=== PATIENT | male | born 1950 | race Caucasian/White ===

== ENCOUNTER 2025-02-02 09:47 | Emergency (ER) | payer OTHER ==
[2025-02-02 11:33] LABS: Specific Gravity 1.016 (1.005-1.030); Urine Bilirubin NEGATIVE (Negative); Urine Blood Negative (Negative); Urine Clarity Clear (Clear); Urine Color Light-Yellow (Yellow); Urine Glucose NEGATIVE (Negative); Urine Ketones NEGATIVE (Negative); Urine Microscopic Reflex YN NO UMIC; Urine Nitrite NEGATIVE (Negative); Urine Protein NEGATIVE (Negative); Urine Urobilinogen Normal (Normal)
--- NOTE | 2025-02-02 11:36 | RAD REPORT ---
EXAMINATION: CT LUMBAR SPINE WITHOUT CONTRAST CLINICAL INDICATION: Back pain. Prostate cancer. TECHNIQUE: Axial CT images were obtained through the lumbar spine in soft tissue and bone windows wit hout intravenous contrast. Coronal and Sagittal reformatted images were created from the data set. One or more of the following dose reduction techniques were used: Automated exposure control, adjustm ent of the mA and/ or kV according to patient size, and/or iterative reconstruction. Unless otherwise specified, incidental findings do not require dedicated imaging follow-up. COMPARISON: No prior exam. FINDINGS: For purposes of this dictation, it is assumed that there are 5 non rib-bearing lumbar type vertebrae, and the most caudal fully segmented lumbar vertebra is labeled L5. Mild compression deformities involve L1, L2 and L3 vertebral bodies which probably are old. Small right paracentral disc herniation suspected L3-4. This in combination with disc bulge ligamentu m flavum and facet hypertrophy result in narrowing of the thecal sac 5 mm. Moderate narrowing of the neural foramina bilaterally. Disc bulge, ligamentum flavum and facet hypertrophy L4-5 results in narrowing of the thecal sac to ap proximately 4 mm. 6 mm soft tissue structure abuts the medial aspect of the right facet joint. Small collection of air lies between this and the thecal sac. Spondylosis involves the remainder of the lumbar spine to a lesser degree. No dislocation. 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 6 mm round structure abuts the medial rig ht facet joint L4-5. This may represent a synovial cyst. Small amount of air lies between this and the thecal sac. Further evaluation with MRI may be helpful for further evaluation.
[2025-02-02] MEDS ORDERED: KETOROLAC 30 MG/ML INJ ONE ×2 (11:45→13:40)
[2025-02-02] MEDS ORDERED: NA CHLORIDE 0.9% 500 ML ONE (11:45)
[2025-02-02] MEDS ORDERED: dexAMETHasone 10 MG/ML VIAL ONE (11:45)
[2025-02-02] MEDS ORDERED: ONDANSETRON 4 MG/2 ML VIAL ONE ×2 (11:45→13:40)
[2025-02-02 11:48] LABS: Absolute Eosinophils 0.1 K/uL (0-0.5); Absolute Lymphocytes (CBC) 1.1 K/uL (0.7-4.9); Absolute Monocytes 0.5 K/uL (0.1-1.3); Absolute Neutrophil 4.4 K/uL (1.8-8.0); Basophils % 0.7 % (0-1.3); Eosinophils % 1.4 % (0-4.4); Hematocrit 38.4 % (39.6-49.0); Hemoglobin 13.7 g/dL (13.6-17.9); Lymphocytes % 17.8 % (15.3-44.8); MCH 34.4 pg (27.0-35.0); MCHC 35.6 g/dL (32.0-36.0); MCV 96.5 fL (80-100); MPV 7.4 fL (7.6-11.3); Monocytes % 8.7 % (3.3-12.3); Neutrophils % 71.4 % (41.7-73.7); Platelets 256 thou/uL (152-406); RBC Red Blood Cell Count 3.98 M/uL (4.33-5.43); Red Cell Distribution Width 13.4 % (12.1-15.2)
[2025-02-02 12:12] LABS: Albumin 3.8 g/dL (3.4-5.0); Albumin/Globulin Ratio 1.1 (1.1-1.8); Anion Gap 5.2 mEq/L (5.0-15.0); Bilirubin Total 1.2 mg/dL (0.2-1.0); Globulin 3.4 g/dL (2.3-3.5); Potassium 4.2 mEq/L (3.5-5.1); Protein, Total 7.2 g/dL (6.4-8.2)
--- NOTE | 2025-02-02 13:24 | EDPHYS ---
Physician Documentation [facility] Name: Tayo Sainz Age: 75 yrs Sex: Male : 1950 Arrival Date: 02/02/2025 Time: 09:47 Bed 20 Private MD: Saturnino Martinez HPI: 02/02 13:20 This 75 yrs old Male presents to ER via Wheelchair with complaints of Lower jose Back Pain, Leg Pain. 13:20 The patient presents with decreased range of motion, pain. The complaints affect the jose lumbar area. Context: resulted from an unknown cause, the patient can fully bear weight. Modifying factors: The symptoms are alleviated by remaining still, the symptoms are aggravated by movement, weight bearing. Associated signs and symptoms: The patient has no apparent associated signs or symptoms. Treatment prior to arrival includes: no previous treatment. The patient has experienced similar episodes in the past, several times. Historical: - Allergies: 10:08 No Known Allergies; ld1 - PMHx: 10:08 Hypercholesterolemia; Hypertensive disorder; ld1 10:09 Prostate cancer; ld1 - PSHx: 10:09 Neck fusion; Prostate surgery; ld1 - Immunization history:: Adult Immunizations. - Infectious Disease History:: Denies. - Social history:: Smoking status: Patient denies any tobacco usage or history of. - Family history:: not pertinent. ROS: 13:20 Constitutional: Negative for fever, chills, and weight loss, Eyes: Negative for injury, jose pain, redness, and discharge, ENT: Negative for injury, pain, and discharge, Neck: Negative for injury, pain, and swelling, Cardiovascular: Negative for chest pain, palpitations, and edema, Respiratory: Negative for shortness of breath, cough, wheezing, and pleuritic chest pain, Abdomen/GI: Negative for abdominal pain, nausea, vomiting, diarrhea, and constipation, : Negative for injury, bleeding, discharge, and swelling, MS/Extremity: Negative for injury and deformity, Skin: Negative for injury, rash, and discoloration, Neuro: Negative for headache, weakness, numbness, tingling, and seizure, Psych: Negative for depression, anxiety, suicide ideation, homicidal ideation, and hallucinations, Allergy/Immunology: Negative for hives, rash, and allergies, Endocrine: Negative for neck swelling, polydipsia, polyuria, polyphagia, and marked weight changes, Hematologic/Lymphatic: Negative for swollen nodes, abnormal bleeding, and unusual bruising, 13:20 Back: Positive for injury or acute deformity, decreased range of motion, pain at rest, of the lumbar area, Exam: 13:20 Constitutional: This is a well developed, well nourished patient who is awake, alert, jose and in no acute distress. Head/Face: Normocephalic, atraumatic. Eyes: Pupils equal round and reactive to light, extra-ocular motions intact. Lids and lashes normal. Conjunctiva and sclera are non-icteric and not injected. Cornea within normal limits. Periorbital areas with no swelling, redness, or edema. ENT: Nares patent. No nasal discharge, no septal abnormalities noted. Tympanic membranes are normal and external auditory canals are clear. Oropharynx with no redness, swelling, or masses, exudates, or evidence of obstruction, uvula midline. Mucous membranes moist. Neck: Trachea midline, no thyromegaly or masses palpated, and no cervical lymphadenopathy. Supple, full range of motion without nuchal rigidity, or vertebral point tenderness. No Meningismus. Chest/axilla: Normal chest wall appearance and motion. Nontender with no deformity. No lesions are appreciated. Cardiovascular: Regular rate and rhythm with a normal S1 and S2. No gallops, murmurs, or rubs. Normal PMI, no JVD. No pulse deficits. Respiratory: Lungs have equal breath sounds bilaterally, clear to auscultation and percussion. No rales, rhonchi or wheezes noted. No increased work of breathing, no retractions or nasal flaring. Abdomen/GI: Soft, non-tender, with normal bowel sounds. No distension or tympany. No guarding or rebound. No evidence of tenderness throughout. Male : Normal genitalia with no discharge or lesions. Skin: Warm, dry with normal turgor. Normal color with no rashes, no lesions, and no evidence of cellulitis. MS/ Extremity: Pulses equal, no cyanosis. Neurovascular intact. Full, normal range of motion., bilateral aka Neuro: Awake and alert, GCS 15, oriented to person, place, time, and situation. Cranial nerves II-XII grossly intact. Motor strength 5/5 in all extremities. Sensory grossly intact. Cerebellar exam normal. Normal gait. Psych: Awake, alert, with orientation to person, place and time. Behavior, mood, and affect are within normal limits. 13:20 Back: ROM is painful, normal spinal alignment noted, CVA tenderness, is absent, vertebral tenderness, is not appreciated, muscle spasm, is appreciated in the low back area, left mid back and right mid back, Vital Signs: 10:05 BP 130 / 75; Pulse 66; Resp 18; Temp 97.5(TE); Pulse Ox 96% on R/A; Height 5 ft. 11 in. ld1 ; 11:40 BP 149 / 80; Pulse 64; Resp 16 S; Pulse Ox 98% on R/A; aa5 13:30 BP 152 / 78; Pulse 66; Resp 16 S; Pulse Ox 99% on R/A; aa5 14:41 BP 162 / 86; Pulse 65; Resp 18; Pulse Ox 97% on R/A; ld1 MDM: 10:01 Medical Screening Exam initiated jose 13:22 Differential diagnosis: closed fracture, contusion, tendonitis. Data reviewed: vital [facility] signs, nurses notes, lab test result(s), radiologic studies, CT scan. Consideration of Admission/Observation Escalation of care including admission/observation considered. I considered the following discharge prescriptions or medication management in the emergency department Medications were administered in the Emergency Department. See MAR. Independent interpretation of the following test(s) in the Emergency Department CT Scan: My interpretation is ct lumbar. Historians other than the Patient: pt well informed. 02/02 10:02 Order name: CBC with Diff; Complete Time: 12:58 [facility] 02/02 10:02 Order name: CMP; Complete Time: 12:58 [facility] 02/02 10:02 Order name: Urinalysis w/ reflexes; Complete Time: 12:58 [facility] 02/02 10:02 Order name: CT Lumbar Spine Wo Con; Complete Time: 12:58 [facility] Administered Medications: 11:56 Drug: Ondansetron IVP 4 mg IVP once; over 2 minutes Route: IVP; Site: right antecubital;aa5 12:46 Follow up: Response: No adverse reaction aa5 11:58 Drug: Ketorolac IVP 15 mg IVP once Route: IVP; Site: right antecubital; aa5 12:46 Follow up: Response: No adverse reaction; Pain is decreased aa5 11:58 Drug: Decadron - Dexamethasone IVP 10 mg IVP once Route: IVP; Site: right antecubital; aa5 12:46 Follow up: Response: No adverse reaction aa5 11:59 Drug: NS 0.9% IV 500 ml 500 ml IV at 1 bolus once; to be given as a bolus over 30 aa5 minutes Volume: 500 ml; Route: IV; Rate: 1 bolus; Site: right antecubital; 12:29 Follow up: IV Status: Completed infusion; IV Intake: 500ml aa5 14:08 Drug: Ketorolac IVP 15 mg IVP once Route: IVP; Site: right antecubital; aa5 14:15 Follow up: Response: No adverse reaction aa5 14:08 Drug: Diazepam PO 10 mg PO once Route: PO; aa5 14:15 Follow up: Response: No adverse reaction aa5 14:08 Drug: morphine IVP or IV 4 mg IVP once over 4 mins Route: IVP; Infused Over: 4 mins; aa5 Site: right antecubital; 14:15 Follow up: Response: No adverse reaction aa5 14:08 Drug: Ondansetron IVP 4 mg IVP once; over 2 minutes Route: IVP; Site: right antecubital;aa5 14:15 Follow up: Response: No adverse reaction aa5 Disposition Summary: 02/02/25 13:24 Discharge Ordered Notes: Location: Home jose Problem: new jose Symptoms: have improved jose Condition: Stable jose Diagnosis - Sciatica jose - Spondylolysis, lumbar region jose - Other intervertebral disc disorders, lumbar region jose - Intervertebral disc disorders with radiculopathy, lumbar region jose Followup: jose - With: Private Physician - When: 2 - 3 days - Reason: Recheck today's complaints, Continuance of care, Re-evaluation by your physician Discharge Instructions: - Discharge Summary Sheet jose - Herniated Disk jose - Lumbosacral Radiculopathy jose - Back Exercises, [id number] jose - Herniated Disk, [id number] jose - Radicular Pain jose Forms: - Medication Reconciliation Form jose - Antibiotic Education jose - Prescription Opioid Use jose - Patient Portal Instructions jose - Leadership Thank You Letter jose - Work release form aa5 Prescriptions: - Valium 5 mg Oral Tablet - take 1 tablet ORAL route every 8 hours As needed; 20 tablet; Refills: 0, jose Product Selection Permitted - Diclofenac Sodium 75 mg Oral Tablet Sustained Release - take 1 tablet ORAL route 2 times per day; 30 tablet; Refills: 0, Product [facility] Selection Permitted - Tylenol-Codeine #3 300mg-30mg Oral tablet - take 2 tablets ORAL route every 6 hours As needed; 20 tablet; Refills: 0, [facility] Product Selection Permitted - Dexamethasone 4mg Oral tablet - take 1 tablet ORAL route daily for 4 days; 4 tablet; Refills: 0, Product [facility] Selection Permitted Signatures: Dispatcher [employer] EDMS Saturnino Zuñiga MD MD cha Calderon, Audri, RN RN aa5 Claire Stahl RN RN ld1 Corrections: (The following items were deleted from the chart) 10:03 10:03 CBC+H.LAB.BRZ ordered. EDMS EDMS 10:03 10:03 COMPREHENSIVE METABOLIC PANEL+C.LAB.BRZ ordered. EDMS EDMS 10:03 10:03 Urinalysis+U.LAB.BRZ ordered. EDMS EDMS 10:03 10:03 Spine Lumbar Wo Con+CT.RAD.BRZ ordered. EDMS EDMS 10:08 10:08 Allergies: No Known Allergies; ld1 ld1
--- NOTE | 2025-02-02 13:24 | ER ---
Nurse's Notes [facility] Name: Tayo Sainz Age: 75 yrs Sex: Male : 1950 Arrival Date: 02/02/2025 Time: 09:47 Bed 20 Private MD: Diagnosis: Sciatica;Spondylolysis, lumbar region;Other intervertebral disc disorders, lumbar region;Intervertebral disc disorders with radiculopathy, lumbar region Presentation: 02/02 10:05 Chief complaint: Patient states: Pt went to PCP for lower back pain was seen by doctor ld1 and received medications. Medications have not improved back pain. Pt denies UTI symptoms. Denies injury. Symptoms worsened, unable to walk now. Coronavirus screen: At this time, the client does not indicate any symptoms associated with coronavirus-19. Ebola Screen: No symptoms or risks identified at this time. Initial Sepsis Screen: Does the patient meet any 2 criteria? No. Patient's initial sepsis screen is negative. Does the patient have a suspected source of infection? No. Patient's initial sepsis screen is negative. Risk Assessment: Do you want to hurt yourself or someone else? Patient reports no desire to harm self or others. Onset of symptoms was February 02, 2025. 10:05 Method Of Arrival: Wheelchair ld1 10:05 Acuity: SHANNA 4 ld1 Triage Assessment: 10:08 General: Appears in no apparent distress. comfortable, Behavior is calm, cooperative, ld1 appropriate for age. Pain: Complains of pain in low back area Pain does not radiate. Pain currently is 1 out of 10 on a pain scale. at worst was 10 out of 10 on a pain scale. Quality of pain is described as sharp, shooting, Pain began 1 month Is continuous. EENT: No signs and/or symptoms were reported regarding the EENT system. Neuro: Level of Consciousness is awake, alert, obeys commands, Oriented to person, place, time, situation. Cardiovascular: Capillary refill < 3 seconds Patient's skin is warm and dry. Respiratory: Airway is patent Respiratory effort is even, unlabored. GI: Abdomen is round non-distended. : No signs and/or symptoms were reported regarding the genitourinary system. Derm: No signs and/or symptoms reported regarding the dermatologic system. Musculoskeletal: No signs and/or symptoms reported regarding the musculoskeletal system. Historical: - Allergies: 10:08 No Known Allergies; ld1 - PMHx: 10:08 Hypercholesterolemia; Hypertensive disorder; ld1 10:09 Prostate cancer; ld1 - PSHx: 10:09 Neck fusion; Prostate surgery; ld1 - Immunization history:: Adult Immunizations. - Infectious Disease History:: Denies. - Social history:: Smoking status: Patient denies any tobacco usage or history of. - Family history:: not pertinent. Screenin:42 [facility] ED Fall Risk Assessment (Adult) History of falling in the last 3 months, ld1 including since admission No falls in past 3 months (0 pts) Confusion or Disorientation No (0 pts) Intoxicated or Sedated No (0 pts) Impaired Gait No (0 pts) Mobility Assist Device Used No (0 pt) Altered Elimination No (0 pt) Score/Fall Risk Level 0 - 2 = Low Risk Oriented to surroundings, Hourly rounding (assess needs \T\ fall precautionary measures) done. Abuse screen: Denies threats or abuse. Denies injuries from another. Nutritional screening: No deficits noted. Tuberculosis screening: No symptoms or risk factors identified. Assessment: 11:35 General: Appears uncomfortable, Behavior is calm, cooperative. Pain: Complains of pain aa5 in right mid back and left mid back and lumbar area and low back area Pain radiates to right leg and left leg Pain currently is 6 out of 10 on a pain scale. Quality of pain is described as sharp, shooting, Is intermittent, Aggravated by movement. Neuro: Level of Consciousness is awake, alert, obeys commands, Oriented to person, place, time, situation. Cardiovascular: Patient's skin is warm and dry. Respiratory: Airway is patent Respiratory effort is even, unlabored, Respiratory pattern is regular, symmetrical. GI: No signs and/or symptoms were reported involving the gastrointestinal system. : No signs and/or symptoms were reported regarding the genitourinary system. EENT: No signs and/or symptoms were reported regarding the EENT system. Derm: Skin is pink, warm \T\ dry. Musculoskeletal: Range of motion: intact in all extremities. 11:56 Reassessment: Patient is alert, oriented x 3, equal unlabored respirations, skin aa5 warm/dry/pink. 12:46 Reassessment: Patient is alert, oriented x 3, equal unlabored respirations, skin aa5 warm/dry/pink. Patient states feeling better. Pain: Pain currently is 0 out of 10 on a pain scale. 13:50 Reassessment: To bedside to administer medications, pt sitting up in bed eating a aa5 sandwich brought in by family. Will come back to administer medications. . 14:08 Reassessment: Patient is alert, oriented x 3, equal unlabored respirations, skin aa5 warm/dry/pink. 14:41 Reassessment: Patient appears in no apparent distress at this time. No changes from ld1 previously documented assessment. Patient and/or family updated on plan of care and expected duration. Pain level reassessed. Patient is alert, oriented x 3, equal unlabored respirations, skin warm/dry/pink. Vital Signs: 10:05 BP 130 / 75; Pulse 66; Resp 18; Temp 97.5(TE); Pulse Ox 96% on R/A; Height 5 ft. 11 in. ld1 ; 11:40 BP 149 / 80; Pulse 64; Resp 16 S; Pulse Ox 98% on R/A; aa5 13:30 BP 152 / 78; Pulse 66; Resp 16 S; Pulse Ox 99% on R/A; aa5 14:41 BP 162 / 86; Pulse 65; Resp 18; Pulse Ox 97% on R/A; ld1 ED Course: 09:51 Patient arrived in ED. cj3 10:00 Saturnino Zuñiga MD is Attending Physician. jose 10:08 Triage completed. ld1 10:08 Arm band placed on right wrist. ld1 10:21 CT Lumbar Spine Wo Con In Process Unspecified. EDMS 11:35 Mamie Foster, JAYDA is Primary Nurse. aa5 11:35 Patient has correct armband on for positive identification. Bed in low position. Call aa5 light in reach. Side rails up X2. Adult w/ patient. Door closed. Noise minimized. Warm blanket given. 11:35 Pulse ox on. NIBP on. aa5 11:40 Initial lab(s) drawn, by me, sent to lab. Inserted saline lock: 20 gauge in right aa5 antecubital area, using aseptic technique. Blood collected. Flushed with 10 mL NS. 14:42 No provider procedures requiring assistance completed. IV discontinued, intact, ld1 bleeding controlled, No redness/swelling at site. Administered Medications: 11:56 Drug: Ondansetron IVP 4 mg IVP once; over 2 minutes Route: IVP; Site: right antecubital;aa5 12:46 Follow up: Response: No adverse reaction aa5 11:58 Drug: Ketorolac IVP 15 mg IVP once Route: IVP; Site: right antecubital; aa5 12:46 Follow up: Response: No adverse reaction; Pain is decreased aa5 11:58 Drug: Decadron - Dexamethasone IVP 10 mg IVP once Route: IVP; Site: right antecubital; aa5 12:46 Follow up: Response: No adverse reaction aa5 11:59 Drug: NS 0.9% IV 500 ml 500 ml IV at 1 bolus once; to be given as a bolus over 30 aa5 minutes Volume: 500 ml; Route: IV; Rate: 1 bolus; Site: right antecubital; 12:29 Follow up: IV Status: Completed infusion; IV Intake: 500ml aa5 14:08 Drug: Ketorolac IVP 15 mg IVP once Route: IVP; Site: right antecubital; aa5 14:15 Follow up: Response: No adverse reaction aa5 14:08 Drug: Diazepam PO 10 mg PO once Route: PO; aa5 14:15 Follow up: Response: No adverse reaction aa5 14:08 Drug: morphine IVP or IV 4 mg IVP once over 4 mins Route: IVP; Infused Over: 4 mins; aa5 Site: right antecubital; 14:15 Follow up: Response: No adverse reaction aa5 14:08 Drug: Ondansetron IVP 4 mg IVP once; over 2 minutes Route: IVP; Site: right antecubital;aa5 14:15 Follow up: Response: No adverse reaction aa5 Medication: 14:43 VIS not applicable for this client. ld1 Intake: 12:29 IV: 500ml; Total: 500ml. aa5 Outcome: 13:24 Discharge ordered by . jose 14:42 Discharged to home via wheelchair, with family, ld1 14:42 Condition: stable 14:42 Discharge instructions given to patient, family, Instructed on discharge instructions, follow up and referral plans. medication usage, Demonstrated understanding of instructions, follow-up care, medications, Prescriptions given X 4, 14:43 Patient left the ED. ld1 Signatures: Dispatcher [employer] Saturnino Lincoln MD MD cha Calderon, Audri, RN RN aa5 Claire Stahl RN RN ld1 Aury White cj3 Corrections: (The following items were deleted from the chart) 10:08 10:08 Allergies: No Known Allergies; ld1 ld1 : 14:42 Patient has correct armband on for positive identification. Placed in gown. Bed aa5 in low position. Call light in reach. Side rails up X2. ld1 14:42 Pulse ox on. NIBP on. ld1 aa5 : 14:42 Door closed. Noise minimized. Warm blanket given. ld1 aa5
[2025-02-02] MEDS ORDERED: DIAZEPAM 5 MG TABLET ONE (13:41)
[2025-02-02] MEDS ORDERED: MORPHINE 4 MG/ML SYR ONE (13:41)
[2025-02-02 15:02] VITALS: TEMP 97.5
[2025-02-02 15:04] VITALS: BP 162/86; O2SAT 97
== END 2025-02-02 14:43 | disposition home or self-care (01) ==
LOC: ER 09:47
DX: M54.30 Sciatica, unspecified side (principal); M43.06 Spondylolysis, lumbar region; M54.16 Radiculopathy, lumbar region
CPT/HCPCS: 85025; 36415; 81003; 80053; 72131; 96375; 96374; 99284; J1100; J2405 ×2; J7040